=== PATIENT | male | born 1965 | race African-American/Black ===

== ENCOUNTER 2018-05-23 10:10 | Emergency (ER) | payer MEDICARE, OTHER ==
[~2018-05-23] VITALS: Ht 188 cm; Wt 113.6 kg
[~2018-05-23 10:10] MED LIST: AMLO-511 PO; CARI350 PO; GABA-531 PO; OLAN10TA6 PO; TOPI25 PO; VENL-67 PO; ZOLP10TA2 PO
[2018-05-23] MEDS ORDERED: LIDO700A15 TD (10:50)
[2018-05-23] MEDS ORDERED: TRAZ-219 PO (10:50)
[2018-05-23] MEDS ORDERED: MELO-107 PO (10:50)
[2018-05-23] MEDS ORDERED: HYDR25TA PO (10:50)
[2018-05-23] MEDS ORDERED: QUET200T PO (10:50)
[2018-05-23 13:22] VITALS: BP 169/90
== END 2018-05-23 13:47 | disposition home or self-care (01) ==
LOC: EMS 10:11
DX: I10 Essential (primary) hypertension (principal); F41.9 Anxiety disorder, unspecified; M54.5 Low back pain; G89.29 Other chronic pain; I25.10 Atherosclerotic heart disease of native coronary artery without angina pectoris; Z76.0 Encounter for issue of repeat prescription; Z88.5 Allergy status to narcotic agent; Z88.8 Allergy status to other drugs, medicaments and biological substances
CPT/HCPCS: 99283

== ENCOUNTER 2018-05-26 13:52 | Emergency (ER) | payer MEDICARE, OTHER ==
[~2018-05-26] VITALS: Ht 188 cm; Wt 113.6 kg
[~2018-05-26 13:52] MED LIST changes: -AMLO-511 PO; -CARI350 PO; +HYDR25TA PO; +LIDO700A15 TD; +MELO-107 PO; -OLAN10TA6 PO; +QUET200T PO; -TOPI25 PO; +TRAZ-219 PO; -ZOLP10TA2 PO
[2018-05-26] MEDS ORDERED: CLON-570 PO (14:00)
[2018-05-26] MEDS ORDERED: DEXAMETHASONE SOD PHOS 4 MG/ML 5 ML VIAL IM ONE (15:00)
[2018-05-26] MEDS ORDERED: CloNIDine HCL 0.1 MG TABLET PO ONE (15:15)
[2018-05-26] MEDS ORDERED: CYCLOBENZAPRINE HCL 10 MG TABLET PO ONE (15:15)
[2018-05-26 15:36] VITALS: BP 152/103
== END 2018-05-26 15:38 | disposition home or self-care (01) ==
LOC: EMS 13:54
DX: Z76.0 Encounter for issue of repeat prescription (principal); G89.29 Other chronic pain; M54.5 Low back pain; F41.9 Anxiety disorder, unspecified; I25.10 Atherosclerotic heart disease of native coronary artery without angina pectoris; F32.9 Major depressive disorder, single episode, unspecified; I10 Essential (primary) hypertension; F20.9 Schizophrenia, unspecified; Z88.6 Allergy status to analgesic agent; Z88.8 Allergy status to other drugs, medicaments and biological substances; Z79.899 Other long term (current) drug therapy
CPT/HCPCS: 96372; 99283; J1100

== ENCOUNTER 2018-06-11 16:00 | Inpatient (IN) | payer MEDICARE, MEDICAID ==
[~2018-06-11] VITALS: Ht 188 cm; Wt 103.2 kg
[~2018-06-11 16:00] MED LIST changes: +CLON-570 PO
[2018-06-11 16:39] LABS: GLUCOSE,POINT OF CARE 94 MG/DL (70-110)
[2018-06-11 17:04] LABS: BASOPHILS % (AUTO) 0.4 % (0.0-2.0); EOSINOPHILS % (AUTO) 4.4 % (1.0-6.0); HEMATOCRIT 38.2 % (41-53); HEMOGLOBIN 12.6 g/dL (13.5-17.5); LYMPHOCYTES # (AUTO) 1.2 K/uL (1.0-4.8); MEAN CORPUSCULAR HEMOGLOBIN 29.4 pg (26.0-34.0); MEAN CORPUSCULAR HGB CONC 32.9 G/dL (31.0-37.0); MEAN CORPUSCULAR VOLUME 89 fL (80-100); MONOCYTES # (AUTO) 0.7 K/uL (0.1-1.0); MONOCYTES % (AUTO) 10.5 % (2.0-9.0); NEUTROPHILS # (AUTO) 4.4 K/uL (1.8-7.7); NEUTROPHILS % (AUTO) 66.7 % (40.0-70.0); PLATELET COUNT (AUTO) 220 K/uL (150-450); RED BLOOD CELL COUNT(AUTO) 4.28 MIL/uL (4.50-5.90); RED CELL DISTRIBUTION WIDTH 13.8 % (11.5-14.5)
[2018-06-11 17:07] LABS: APPEARANCE,URINE CLEAR (CLEAR); BILIRUBIN,URINE PRELIM. POSITIVE (NEGATIVE); GLUCOSE, URINE (UA) NEGATIVE (NEGATIVE); KETONES,URINE NEGATIVE (NEGATIVE); LEUKOCYTE ESTERASE ,URINE NEGATIVE (NEGATIVE); NITRATE,URINE NEGATIVE (NEGATIVE); OCCULT BLOOD,URINE NEGATIVE (NEGATIVE); PROTEIN,URINE TRACE (NEGATIVE); UROBILINOGEN,URINE 0.2 mg/dL (<=1.0)
[2018-06-11 17:11] LABS: AMPHET/METH SCREEN,URINE POSITIVE (NEGATIVE); BARBITURATE SCREEN, URINE NEGATIVE (NEGATIVE); BENZODIAZEPINES SCREEN,URINE NEGATIVE (NEGATIVE); CANNABINOID SCREEN,URINE NEGATIVE (NEGATIVE); COCAINE SCREEN,URINE POSITIVE (NEGATIVE); METHADONE SCREEN, URINE NEGATIVE (NEGATIVE); OPIATE SCREEN,URINE NEGATIVE (NEGATIVE)
[2018-06-11 17:12] LABS: PHENCYCLIDINE SCREEN,URINE NEGATIVE (NEGATIVE)
[2018-06-11 17:15] LABS: ANION GAP 11 mmol/L (8-16); CALCIUM, TOTAL 8.8 mg/dL (8.8-10.5); CARBON DIOXIDE 25 mmol/L (22-29); CHLORIDE 105 mmol/L (98-107); CREATININE 1.07 mg/dL (0.60-1.30); GLOMERULAR FILTR. RATE CALC > 60 mL/min (>60); GLUCOSE,RANDOM 92 mg/dL (70-110); POTASSIUM 3.5 mmol/L (3.5-5.1); SODIUM SERUM 141 mmol/L (136-145); UREA NITROGEN, BLOOD 13 mg/dL (7-18)
[2018-06-11 17:29] LABS: ALANINE AMINOTRANSFERASE 31 U/L (12-78); ALBUMIN 3.3 g/dL (3.4-5.0); ALKALINE PHOSPHATASE 82 U/L (46-116); ASPARTATE AMINOTRANSFERASE 35 U/L (15-37); BILIRUBIN,TOTAL 0.8 mg/dL (0.1-1.0); TOTAL PROTEIN, SERUM 7.4 g/dL (6.4-8.2)
[2018-06-11] MEDS ORDERED: HALOPERIDOL 5 MG TABLET PO PRN (19:45)
[2018-06-11 21:11] VITALS: BP 136/82
[2018-06-11] MEDS ORDERED: LOPERAMIDE HCL 2 MG CAPSULE PO PRN ×2 (22:00→22:15)
[2018-06-11] MEDS ORDERED: IBUPROFEN 600 MG TABLET PO PRN ×2 (22:00→22:15)
[2018-06-11] MEDS ORDERED: PETROLATUM,WHITE 71 GM JELLY TP PRN ×2 (22:00→22:15)
[2018-06-11] MEDS ORDERED: CloNIDine HCL 0.1 MG TABLET PO PRN (22:00)
[2018-06-11] MEDS ORDERED: MAGNESIUM HYDROXIDE SUSPENSION 30 ML UDCUP PO PRN ×2 (22:00→22:15)
[2018-06-11] MEDS ORDERED: ACETAMINOPHEN 325 MG TABLET PO PRN ×2 (22:00→22:15)
[2018-06-11] MEDS ORDERED: BENZOCAINE/MENTHOL LOZENGE MM PRN ×2 (22:00→22:15)
[2018-06-11] MEDS ORDERED: BACITRACIN 28.4 GM OINTMENT TP PRN ×2 (22:00→22:15)
[2018-06-11] MEDS ORDERED: ONDANSETRON HCL 4 MG TABLET PO PRN ×2 (22:00→22:15)
[2018-06-11] MEDS ORDERED: ALBUTEROL SULFATE HFA 90 MCG/PUFF 8 GM INHALER IH PRN ×2 (22:00→22:15)
[2018-06-11] MEDS ORDERED: MAG HYDROX/AL HYDROX/SIMETH ES 30 ML SUSPENSION UDCUP PO PRN ×2 (22:00→22:15)
[2018-06-12 08:30] VITALS: BP 124/77
[2018-06-12] MEDS ORDERED: CloNIDine HCL 0.1 MG TABLET PO SCH (09:00)
[2018-06-12] MEDS ORDERED: GABAPENTIN 300 MG CAPSULE PO SCH (09:00)
[2018-06-12] MEDS ORDERED: OMEPRAZOLE 20 MG CAPSULE PO SCH (09:00)
[2018-06-12] MEDS: GABAPENTIN 300 MG CAPSULE PO SCH ×5 (09:00→21:00)
[2018-06-12] MEDS: HYDROCHLOROTHIAZIDE 25 MG TABLET PO SCH (09:00)
[2018-06-12] MEDS ORDERED: DOCUSATE SODIUM 100 MG CAPSULE PO SCH (09:00)
[2018-06-12] MEDS: OMEPRAZOLE 20 MG CAPSULE PO SCH (09:00)
[2018-06-12] MEDS: DOCUSATE SODIUM 100 MG CAPSULE PO SCH (09:00)
[2018-06-12] MEDS ORDERED: HYDROCHLOROTHIAZIDE 25 MG TABLET PO SCH (09:00)
[2018-06-12 17:45] VITALS: BP 138/92
[2018-06-12] MEDS ORDERED: DiphenhydrAMINE HCL 50 MG/ML VIAL IM ONE (21:30)
[2018-06-12] MEDS ORDERED: LORazepam 2 MG/ML VIAL IM ONE (21:30)
[2018-06-12] MEDS: ZOLPIDEM TARTRATE 10 MG TABLET PO PRN (22:34)
[2018-06-13 08:33] VITALS: BP 127/86
[2018-06-13] MEDS: OMEPRAZOLE 20 MG CAPSULE PO SCH (09:13)
[2018-06-13] MEDS: HYDROCHLOROTHIAZIDE 25 MG TABLET PO SCH (09:14)
[2018-06-13] MEDS: DOCUSATE SODIUM 100 MG CAPSULE PO SCH (09:14)
[2018-06-13] MEDS: DIVALPROEX SODIUM 500 MG DR TABLET PO SCH ×2 (09:14→16:08)
[2018-06-13] MEDS: GABAPENTIN 300 MG CAPSULE PO SCH ×4 (09:14→20:47)
[2018-06-13] MEDS: RisperiDONE 1 MG TABLET PO SCH ×2 (09:15→16:08)
[2018-06-13 16:52] VITALS: BP 132/67
[2018-06-13] MEDS: ZOLPIDEM TARTRATE 10 MG TABLET PO PRN (20:47)
[2018-06-14 07:00] LABS: % IRON SATURATION 17.8 % (30-44)
[2018-06-14 08:10] VITALS: BP 130/87
[2018-06-14] MEDS: DOCUSATE SODIUM 100 MG CAPSULE PO SCH (08:22)
[2018-06-14] MEDS: GABAPENTIN 300 MG CAPSULE PO SCH ×4 (08:22→20:13)
[2018-06-14] MEDS: RisperiDONE 1 MG TABLET PO SCH (08:22)
[2018-06-14] MEDS: HYDROCHLOROTHIAZIDE 25 MG TABLET PO SCH (08:22)
[2018-06-14] MEDS: OMEPRAZOLE 20 MG CAPSULE PO SCH (08:22)
[2018-06-14] MEDS: DIVALPROEX SODIUM 500 MG DR TABLET PO SCH ×2 (08:22→16:08)
[2018-06-14] MEDS: LORazepam 2 MG TABLET PO PRN (12:08)
[2018-06-14] MEDS ORDERED: TRAZ-220 PO (12:53)
[2018-06-14] MEDS: VENLAFAXINE HCL 75 MG ER CAPSULE PO SCH (13:43)
[2018-06-14] MEDS: TraZODone HCL 100 MG TABLET PO SCH (20:13)
[2018-06-14] MEDS: QUEtiapine FUMARATE 100 MG TABLET PO SCH (20:14)
[2018-06-15] MEDS: DIVALPROEX SODIUM 500 MG DR TABLET PO SCH ×2 (07:59→16:10)
[2018-06-15] MEDS: DOCUSATE SODIUM 100 MG CAPSULE PO SCH (07:59)
[2018-06-15] MEDS: GABAPENTIN 300 MG CAPSULE PO SCH ×4 (07:59→20:21)
[2018-06-15] MEDS: HYDROCHLOROTHIAZIDE 25 MG TABLET PO SCH (07:59)
[2018-06-15] MEDS: VENLAFAXINE HCL 75 MG ER CAPSULE PO SCH (08:00)
[2018-06-15] MEDS: OMEPRAZOLE 20 MG CAPSULE PO SCH (08:00)
[2018-06-15 08:11] VITALS: BP 122/85
[2018-06-15] MEDS: QUEtiapine FUMARATE 100 MG TABLET PO SCH (20:21)
[2018-06-15] MEDS: TraZODone HCL 100 MG TABLET PO SCH (20:21)
[2018-06-16 08:27] VITALS: BP 126/91
[2018-06-16] MEDS: DOCUSATE SODIUM 100 MG CAPSULE PO SCH (09:00)
[2018-06-16] MEDS: DIVALPROEX SODIUM 500 MG DR TABLET PO SCH ×2 (09:02→17:05)
[2018-06-16] MEDS: HYDROCHLOROTHIAZIDE 25 MG TABLET PO SCH (09:02)
[2018-06-16] MEDS: VENLAFAXINE HCL 75 MG ER CAPSULE PO SCH (09:02)
[2018-06-16] MEDS: GABAPENTIN 300 MG CAPSULE PO SCH ×4 (09:03→20:43)
[2018-06-16] MEDS: OMEPRAZOLE 20 MG CAPSULE PO SCH (09:03)
[2018-06-16] MEDS: LORazepam 2 MG TABLET PO PRN (11:51)
[2018-06-16] MEDS ORDERED: CYCL10 PO (14:06)
[2018-06-16] MEDS ORDERED: LIDO700A30 TD (14:06)
[2018-06-16] MEDS ORDERED: HYDR-4069 PO (14:06)
[2018-06-16] MEDS ORDERED: DICL2100G TP (14:06)
[2018-06-16] MEDS ORDERED: GABA-533 PO (14:11)
[2018-06-16] MEDS ORDERED: DICLOFENAC SODIUM 1% 100 GM GEL [2GM] TP PRN (20:15)
[2018-06-16] MEDS ORDERED: QUET100T PO (20:19)
[2018-06-16] MEDS: TraZODone HCL 100 MG TABLET PO SCH (20:42)
[2018-06-16] MEDS: QUEtiapine FUMARATE 100 MG TABLET PO SCH (20:42)
[2018-06-16] MEDS: ZOLPIDEM TARTRATE 10 MG TABLET PO PRN (20:44)
[2018-06-16] MEDS: -LIDODERM PATCH NOTE- MISC SCH (21:00)
[2018-06-17 08:12] VITALS: BP 134/68
[2018-06-17] MEDS: GABAPENTIN 300 MG CAPSULE PO SCH ×4 (08:27→20:41)
[2018-06-17] MEDS: DIVALPROEX SODIUM 500 MG DR TABLET PO SCH ×2 (08:27→17:41)
[2018-06-17] MEDS: DOCUSATE SODIUM 100 MG CAPSULE PO SCH (08:28)
[2018-06-17] MEDS: OMEPRAZOLE 20 MG CAPSULE PO SCH (08:28)
[2018-06-17] MEDS: VENLAFAXINE HCL 75 MG ER CAPSULE PO SCH (08:28)
[2018-06-17] MEDS: HYDROCHLOROTHIAZIDE 25 MG TABLET PO SCH (08:28)
[2018-06-17] MEDS: LIDOCAINE HCL 5% TRANSDERMAL PATCH TD SCH (09:01)
[2018-06-17] MEDS: LORazepam 2 MG TABLET PO PRN (15:25)
[2018-06-17 17:45] VITALS: BP 129/95
[2018-06-17] MEDS: -LIDODERM PATCH NOTE- MISC SCH (20:39)
[2018-06-17] MEDS: ZOLPIDEM TARTRATE 10 MG TABLET PO PRN (20:40)
[2018-06-17] MEDS: QUEtiapine FUMARATE 100 MG TABLET PO SCH (20:41)
[2018-06-17] MEDS: TraZODone HCL 100 MG TABLET PO SCH (20:41)
[2018-06-18 06:45] VITALS: BP 121/85
[2018-06-18] MEDS: LORazepam 2 MG TABLET PO PRN ×2 (06:49→16:46)
[2018-06-18] MEDS: VENLAFAXINE HCL 75 MG ER CAPSULE PO SCH (07:56)
[2018-06-18] MEDS: HYDROCHLOROTHIAZIDE 25 MG TABLET PO SCH (07:56)
[2018-06-18] MEDS: DIVALPROEX SODIUM 500 MG DR TABLET PO SCH ×3 (07:56→16:46)
[2018-06-18] MEDS: GABAPENTIN 300 MG CAPSULE PO SCH ×4 (07:56→20:11)
[2018-06-18] MEDS: DOCUSATE SODIUM 100 MG CAPSULE PO SCH (07:56)
[2018-06-18] MEDS: OMEPRAZOLE 20 MG CAPSULE PO SCH (07:56)
[2018-06-18] MEDS: LIDOCAINE HCL 5% TRANSDERMAL PATCH TD SCH (08:55)
[2018-06-18 09:10] VITALS: BP 129/97
[2018-06-18 16:30] VITALS: BP 136/84
[2018-06-18] MEDS: -LIDODERM PATCH NOTE- MISC SCH (20:10)
[2018-06-18] MEDS: QUEtiapine FUMARATE 100 MG TABLET PO SCH (20:11)
[2018-06-18] MEDS: TraZODone HCL 100 MG TABLET PO SCH (20:11)
[2018-06-18] MEDS: HYDROCODONE/ACETAMINOPHEN 10-325 MG TABLET PO PRN (20:11)
[2018-06-19] MEDS: HYDROCODONE/ACETAMINOPHEN 10-325 MG TABLET PO PRN (07:49)
[2018-06-19 08:21] VITALS: BP 136/88
[2018-06-19] MEDS: VENLAFAXINE HCL 75 MG ER CAPSULE PO SCH (09:03)
[2018-06-19] MEDS: DOCUSATE SODIUM 100 MG CAPSULE PO SCH (09:03)
[2018-06-19] MEDS: GABAPENTIN 300 MG CAPSULE PO SCH ×4 (09:04→20:24)
[2018-06-19] MEDS: TOPIRAMATE 100 MG TABLET PO SCH ×2 (09:04→16:28)
[2018-06-19] MEDS: OMEPRAZOLE 20 MG CAPSULE PO SCH (09:04)
[2018-06-19] MEDS: HYDROCHLOROTHIAZIDE 25 MG TABLET PO SCH (09:04)
[2018-06-19] MEDS: LIDOCAINE HCL 5% TRANSDERMAL PATCH TD SCH (09:04)
[2018-06-19 17:01] VITALS: BP 122/85
[2018-06-19] MEDS: TraMADol HCL 50 MG TABLET PO PRN (17:07)
[2018-06-19] MEDS: -LIDODERM PATCH NOTE- MISC SCH (20:21)
[2018-06-19] MEDS: QUEtiapine FUMARATE 100 MG TABLET PO SCH (20:23)
[2018-06-19] MEDS: TraZODone HCL 100 MG TABLET PO SCH (20:23)
[2018-06-20 08:43] VITALS: BP 119/66
[2018-06-20] MEDS: LIDOCAINE HCL 5% TRANSDERMAL PATCH TD SCH (09:00)
[2018-06-20] MEDS: TOPIRAMATE 100 MG TABLET PO SCH ×2 (09:43→16:38)
[2018-06-20] MEDS: VENLAFAXINE HCL 75 MG ER CAPSULE PO SCH (09:43)
[2018-06-20] MEDS: OMEPRAZOLE 20 MG CAPSULE PO SCH (09:44)
[2018-06-20] MEDS: HYDROCHLOROTHIAZIDE 25 MG TABLET PO SCH (09:44)
[2018-06-20] MEDS: GABAPENTIN 300 MG CAPSULE PO SCH ×4 (09:44→21:29)
[2018-06-20] MEDS: DOCUSATE SODIUM 100 MG CAPSULE PO SCH (09:44)
[2018-06-20 20:52] VITALS: BP 130/68
[2018-06-20 21:28] VITALS: BP 128/70
[2018-06-20] MEDS: TraZODone HCL 100 MG TABLET PO SCH (21:29)
[2018-06-20] MEDS: TraMADol HCL 50 MG TABLET PO PRN (21:29)
[2018-06-20] MEDS: QUEtiapine FUMARATE 100 MG TABLET PO SCH (21:29)
[2018-06-20] MEDS: -LIDODERM PATCH NOTE- MISC SCH (21:31)
[2018-06-21 08:32] VITALS: BP 116/71
[2018-06-21] MEDS: LIDOCAINE HCL 5% TRANSDERMAL PATCH TD SCH (09:00)
[2018-06-21] MEDS: LORazepam 2 MG TABLET PO PRN ×3 (09:51→21:15)
[2018-06-21] MEDS: GABAPENTIN 300 MG CAPSULE PO SCH ×4 (09:51→21:11)
[2018-06-21] MEDS: HYDROCHLOROTHIAZIDE 25 MG TABLET PO SCH (09:51)
[2018-06-21] MEDS: VENLAFAXINE HCL 75 MG ER CAPSULE PO SCH (09:52)
[2018-06-21] MEDS: TOPIRAMATE 100 MG TABLET PO SCH ×2 (09:52→16:45)
[2018-06-21] MEDS: DOCUSATE SODIUM 100 MG CAPSULE PO SCH (09:52)
[2018-06-21] MEDS: OMEPRAZOLE 20 MG CAPSULE PO SCH (09:52)
[2018-06-21 19:02] VITALS: BP 109/58
[2018-06-21] MEDS: QUEtiapine FUMARATE 100 MG TABLET PO SCH (21:11)
[2018-06-21] MEDS: TraZODone HCL 100 MG TABLET PO SCH (21:11)
[2018-06-21] MEDS: -LIDODERM PATCH NOTE- MISC SCH (21:14)
[2018-06-22 08:20] VITALS: BP 130/69
[2018-06-22] MEDS: VENLAFAXINE HCL 75 MG ER CAPSULE PO SCH (08:52)
[2018-06-22] MEDS: DOCUSATE SODIUM 100 MG CAPSULE PO SCH (08:52)
[2018-06-22] MEDS: HYDROCHLOROTHIAZIDE 25 MG TABLET PO SCH (08:52)
[2018-06-22] MEDS: GABAPENTIN 300 MG CAPSULE PO SCH ×2 (08:52→13:00)
[2018-06-22] MEDS: OMEPRAZOLE 20 MG CAPSULE PO SCH (08:52)
[2018-06-22] MEDS: TOPIRAMATE 100 MG TABLET PO SCH (08:53)
[2018-06-22] MEDS: LORazepam 2 MG TABLET PO PRN (08:55)
[2018-06-22] MEDS: LIDOCAINE HCL 5% TRANSDERMAL PATCH TD SCH (09:00)
[2018-06-22] MEDS ORDERED: TOPI100T37 PO (12:28)
[2018-06-22] MEDS ORDERED: DSS100 PO (12:29)
[2018-06-22] MEDS ORDERED: OMEP20 PO (12:30)
== END 2018-06-22 13:30 | disposition short-term general hospital (02) | DRG 885 ==
LOC: EMS 19:02 → 3EI 20:31 → 3EC 06-12 21:36 → 3EI 06-19 18:00
PROVIDERS: ADMIT Psychiatry & Neurology Psychiatry; ATTEND Psychiatry & Neurology Psychiatry
DX: F25.1 Schizoaffective disorder, depressive type (principal); R45.851 Suicidal ideations; F14.10 Cocaine abuse, uncomplicated; F15.10 Other stimulant abuse, uncomplicated; I25.10 Atherosclerotic heart disease of native coronary artery without angina pectoris; F17.210 Nicotine dependence, cigarettes, uncomplicated; F41.9 Anxiety disorder, unspecified; R56.9 Unspecified convulsions; I12.9 Hypertensive chronic kidney disease with stage 1 through stage 4 chronic kidney disease, or unspecified chronic kidney disease; N18.9 Chronic kidney disease, unspecified; G89.29 Other chronic pain; J44.9 Chronic obstructive pulmonary disease, unspecified; G47.33 Obstructive sleep apnea (adult) (pediatric); D64.9 Anemia, unspecified; Z71.51 Drug abuse counseling and surveillance of drug abuser; Z90.5 Acquired absence of kidney; Z59.0 Homelessness; Z56.0 Unemployment, unspecified; Z65.3 Problems related to other legal circumstances; Z85.528 Personal history of other malignant neoplasm of kidney; Z88.8 Allergy status to other drugs, medicaments and biological substances; Z79.899 Other long term (current) drug therapy
CPT/HCPCS: 72040; 72070; 72100; 83540; 83550; 94660; 99285; 99406; G0480; J1200; J2060

== ENCOUNTER 2018-06-22 16:50 | Inpatient (IN) | payer MEDICARE, MEDICAID ==
[~2018-06-22] VITALS: Ht 188 cm; Wt 107.0 kg
[~2018-06-22 16:50] MED LIST changes: +CYCL10 PO; +DICL2100G TP; +DSS100 PO; +HYDR-4069 PO; -LIDO700A15 TD; +LIDO700A30 TD; -MELO-107 PO; +OMEP20 PO; +QUET100T PO; -QUET200T PO; +TOPI100T37 PO; -TRAZ-219 PO; +TRAZ-220 PO
[2018-06-22 19:04] LABS: BASOPHILS % (AUTO) 0.3 % (0.0-2.0); EOSINOPHILS % (AUTO) 1.7 % (1.0-6.0); HEMATOCRIT 39.8 % (41-53); HEMOGLOBIN 12.9 g/dL (13.5-17.5); LYMPHOCYTES # (AUTO) 1.2 K/uL (1.0-4.8); LYMPHOCYTES % (AUTO) 14.7 % (22.0-44.0); MEAN CORPUSCULAR HEMOGLOBIN 29.1 pg (26.0-34.0); MEAN CORPUSCULAR HGB CONC 32.5 G/dL (31.0-37.0); MEAN CORPUSCULAR VOLUME 90 fL (80-100); MONOCYTES # (AUTO) 0.8 K/uL (0.1-1.0); MONOCYTES % (AUTO) 10.3 % (2.0-9.0); PLATELET COUNT (AUTO) 218 K/uL (150-450); RED BLOOD CELL COUNT(AUTO) 4.44 MIL/uL (4.50-5.90); RED CELL DISTRIBUTION WIDTH 13.2 % (11.5-14.5)
[2018-06-22 19:12] LABS: ANION GAP 12 mmol/L (8-16); CARBON DIOXIDE 26 mmol/L (22-29); CHLORIDE 101 mmol/L (98-107); CREATININE 1.41 mg/dL (0.60-1.30); GLOMERULAR FILTR. RATE CALC > 60 mL/min (>60); GLUCOSE,RANDOM 89 mg/dL (70-110); POTASSIUM 3.4 mmol/L (3.5-5.1); SODIUM SERUM 139 mmol/L (136-145); UREA NITROGEN, BLOOD 20 mg/dL (7-18)
[2018-06-22 19:18] LABS: ALANINE AMINOTRANSFERASE 38 U/L (12-78); ALBUMIN 3.2 g/dL (3.4-5.0); ALKALINE PHOSPHATASE 98 U/L (46-116); ASPARTATE AMINOTRANSFERASE 25 U/L (15-37); BILIRUBIN,TOTAL 0.3 mg/dL (0.1-1.0); TOTAL PROTEIN, SERUM 7.6 g/dL (6.4-8.2)
[2018-06-22 19:38] LABS: AMPHET/METH SCREEN,URINE NEGATIVE (NEGATIVE); BARBITURATE SCREEN, URINE NEGATIVE (NEGATIVE); BENZODIAZEPINES SCREEN,URINE NEGATIVE (NEGATIVE); CANNABINOID SCREEN,URINE NEGATIVE (NEGATIVE); COCAINE SCREEN,URINE NEGATIVE (NEGATIVE); METHADONE SCREEN, URINE NEGATIVE (NEGATIVE); OPIATE SCREEN,URINE NEGATIVE (NEGATIVE)
[2018-06-22 19:39] LABS: PHENCYCLIDINE SCREEN,URINE NEGATIVE (NEGATIVE)
[2018-06-23] MEDS ORDERED: QUEtiapine FUMARATE 100 MG TABLET PO PRN (01:00)
[2018-06-23] MEDS ORDERED: ZOLPIDEM TARTRATE 10 MG TABLET PO PRN (01:00)
[2018-06-23 02:44] VITALS: BP 116/78
[2018-06-23] MEDS: LORazepam 2 MG TABLET PO PRN ×2 (02:58→18:13)
[2018-06-23] MEDS ORDERED: PNEUMOCOCCAL VACCINE POLYVALENT 0.5 ML VIAL [PPSV23] IM ONE (06:00)
[2018-06-23] MEDS ORDERED: POTASSIUM CHLORIDE 20 MEQ ER TABLET PO ONE (07:15)
[2018-06-23 08:20] VITALS: BP 111/71
[2018-06-23] MEDS: HYDROCHLOROTHIAZIDE 25 MG TABLET PO SCH (08:20)
[2018-06-23] MEDS: TOPIRAMATE 100 MG TABLET PO SCH ×2 (08:20→16:36)
[2018-06-23] MEDS: GABAPENTIN 300 MG CAPSULE PO SCH ×4 (08:20→20:43)
[2018-06-23] MEDS: OMEPRAZOLE 20 MG CAPSULE PO SCH (08:20)
[2018-06-23] MEDS: DOCUSATE SODIUM 100 MG CAPSULE PO SCH (08:20)
[2018-06-23] MEDS ORDERED: HydrOXYzine PAMOATE 50 MG CAPSULE PO PRN (12:00)
[2018-06-23] MEDS ORDERED: MAG HYDROX/AL HYDROX/SIMETH ES 30 ML SUSPENSION UDCUP PO PRN (12:00)
[2018-06-23] MEDS ORDERED: GuaiFENesin/D-METHORPHAN [SUGAR-FREE] 200-20MG/10 ML SYRUP UDCUP PO PRN (12:00)
[2018-06-23] MEDS ORDERED: MAGNESIUM HYDROXIDE SUSPENSION 30 ML UDCUP PO PRN (12:00)
[2018-06-23] MEDS ORDERED: TUBERCULIN, PURIFIED PROTEIN DERIVATIVE 5 TU/0.1 ML SYG ID ONE (12:00)
[2018-06-23] MEDS ORDERED: PROMETHAZINE HCL 25 MG TABLET PO PRN (12:00)
[2018-06-23 16:36] VITALS: BP 108/68
[2018-06-23] MEDS: THIAMINE HCL 100 MG TABLET PO SCH (16:37)
[2018-06-23] MEDS: TraZODone HCL 100 MG TABLET PO SCH (20:43)
[2018-06-23] MEDS ORDERED: TraZODone HCL 100 MG TABLET PO SCH (21:00)
[2018-06-23] MEDS ORDERED: QUEtiapine FUMARATE 200 MG TABLET PO SCH (21:00)
[2018-06-24] VITALS: BP 116/81
[2018-06-24] MEDS ORDERED: QUEtiapine FUMARATE 100 MG TABLET PO SCH (09:00)
[2018-06-24 09:11] LABS: CHOL/HDL RATIO 3.7 (4.2-7.3)
[2018-06-24] MEDS: THIAMINE HCL 100 MG TABLET PO SCH ×2 (09:38→16:16)
[2018-06-24] MEDS: HYDROCHLOROTHIAZIDE 25 MG TABLET PO SCH (09:38)
[2018-06-24] MEDS: FOLIC ACID 1 MG TABLET PO SCH (09:38)
[2018-06-24] MEDS: MULTIVITAMINS WITH MINERALS, THERAPEUTIC TABLET PO SCH (09:38)
[2018-06-24] MEDS: VENLAFAXINE HCL 75 MG ER CAPSULE PO SCH (09:38)
[2018-06-24] MEDS: DOCUSATE SODIUM 100 MG CAPSULE PO SCH (09:38)
[2018-06-24] MEDS: OMEPRAZOLE 20 MG CAPSULE PO SCH (09:38)
[2018-06-24] MEDS: GABAPENTIN 300 MG CAPSULE PO SCH ×2 (09:38→12:55)
[2018-06-24] MEDS: TOPIRAMATE 100 MG TABLET PO SCH ×2 (09:38→16:16)
[2018-06-24] MEDS: NALTREXONE HCL 50 MG TABLET PO SCH (09:39)
[2018-06-24 10:03] VITALS: BP 121/72
[2018-06-24] MEDS: ACETAMINOPHEN 325 MG TABLET PO PRN (10:45)
[2018-06-24] MEDS: LORazepam 2 MG TABLET PO PRN (12:54)
[2018-06-24 16:00] VITALS: BP 110/70
[2018-06-24] MEDS: GABAPENTIN 400 MG CAPSULE PO SCH ×2 (16:17→20:11)
[2018-06-24] MEDS: TraZODone HCL 100 MG TABLET PO SCH (20:11)
[2018-06-24] MEDS ORDERED: QUEtiapine FUMARATE 300 MG TABLET PO SCH (21:00)
[2018-06-25 06:36] VITALS: BP 106/73
[2018-06-25] MEDS: GABAPENTIN 400 MG CAPSULE PO SCH ×2 (08:45→12:12)
[2018-06-25] MEDS: DOCUSATE SODIUM 100 MG CAPSULE PO SCH (08:45)
[2018-06-25] MEDS: OMEPRAZOLE 20 MG CAPSULE PO SCH (08:45)
[2018-06-25] MEDS: FOLIC ACID 1 MG TABLET PO SCH (08:45)
[2018-06-25] MEDS: MULTIVITAMINS WITH MINERALS, THERAPEUTIC TABLET PO SCH (08:45)
[2018-06-25] MEDS: NALTREXONE HCL 50 MG TABLET PO SCH (08:45)
[2018-06-25] MEDS: TOPIRAMATE 100 MG TABLET PO SCH ×2 (08:45→16:20)
[2018-06-25] MEDS: THIAMINE HCL 100 MG TABLET PO SCH ×2 (08:45→16:20)
[2018-06-25] MEDS: HYDROCHLOROTHIAZIDE 25 MG TABLET PO SCH (08:45)
[2018-06-25] MEDS: VENLAFAXINE HCL 75 MG ER CAPSULE PO SCH (08:45)
[2018-06-25 09:05] VITALS: BP 120/67
[2018-06-25] MEDS: CEPHALEXIN MONOHYDRATE 500 MG CAPSULE PO SCH ×3 (12:12→20:18)
[2018-06-25 16:15] VITALS: BP 110/83
[2018-06-25] MEDS: GABAPENTIN 100 MG CAPSULE PO SCH ×2 (16:20→20:18)
[2018-06-25] MEDS: QUEtiapine FUMARATE 200 MG TABLET PO SCH (20:18)
[2018-06-25] MEDS: TraZODone HCL 100 MG TABLET PO SCH (20:18)
[2018-06-26 08:20] VITALS: BP 117/75
[2018-06-26] MEDS: NALTREXONE HCL 50 MG TABLET PO SCH (09:00)
[2018-06-26 09:14] LABS: ALANINE AMINOTRANSFERASE 33 U/L (12-78); ALBUMIN 2.8 g/dL (3.4-5.0); ALKALINE PHOSPHATASE 107 U/L (46-116); ANION GAP 10 mmol/L (8-16); ASPARTATE AMINOTRANSFERASE 21 U/L (15-37); BILIRUBIN,TOTAL 0.3 mg/dL (0.1-1.0); CALCIUM, TOTAL 8.7 mg/dL (8.8-10.5); CARBON DIOXIDE 27 mmol/L (22-29); CHLORIDE 104 mmol/L (98-107); CREATINE KINASE, TOTAL 46 U/L (39-308); CREATININE 1.32 mg/dL (0.60-1.30); GLOMERULAR FILTR. RATE CALC > 60 mL/min (>60); GLUCOSE,RANDOM 84 mg/dL (70-110); POTASSIUM 3.4 mmol/L (3.5-5.1); SODIUM SERUM 141 mmol/L (136-145); UREA NITROGEN, BLOOD 26 mg/dL (7-18)
[2018-06-26] MEDS: MULTIVITAMINS WITH MINERALS, THERAPEUTIC TABLET PO SCH (09:21)
[2018-06-26] MEDS: THIAMINE HCL 100 MG TABLET PO SCH ×2 (09:21→16:19)
[2018-06-26] MEDS: GABAPENTIN 100 MG CAPSULE PO SCH ×4 (09:21→20:57)
[2018-06-26] MEDS: FOLIC ACID 1 MG TABLET PO SCH (09:21)
[2018-06-26] MEDS: VENLAFAXINE HCL 75 MG ER CAPSULE PO SCH (09:21)
[2018-06-26] MEDS: HYDROCHLOROTHIAZIDE 25 MG TABLET PO SCH (09:22)
[2018-06-26] MEDS: OMEPRAZOLE 20 MG CAPSULE PO SCH (09:22)
[2018-06-26] MEDS: DOCUSATE SODIUM 100 MG CAPSULE PO SCH (09:22)
[2018-06-26] MEDS: CEPHALEXIN MONOHYDRATE 500 MG CAPSULE PO SCH ×4 (09:22→20:57)
[2018-06-26] MEDS: TOPIRAMATE 100 MG TABLET PO SCH ×2 (09:24→16:19)
[2018-06-26] MEDS ORDERED: POTASSIUM CHLORIDE 20 MEQ ER TABLET PO ONE (14:15)
[2018-06-26 16:11] VITALS: BP 120/76
[2018-06-26] MEDS: ACETAMINOPHEN 325 MG TABLET PO PRN (17:08)
[2018-06-26] MEDS: LORazepam 2 MG TABLET PO PRN (17:53)
[2018-06-26] MEDS: QUEtiapine FUMARATE 200 MG TABLET PO SCH (20:58)
[2018-06-26] MEDS: TraZODone HCL 100 MG TABLET PO SCH (20:58)
[2018-06-27 04:46] VITALS: BP 108/70
[2018-06-27 08:14] VITALS: BP 110/67
[2018-06-27] MEDS: VENLAFAXINE HCL 75 MG ER CAPSULE PO SCH (08:47)
[2018-06-27] MEDS: HYDROCHLOROTHIAZIDE 25 MG TABLET PO SCH (08:48)
[2018-06-27] MEDS: DOCUSATE SODIUM 100 MG CAPSULE PO SCH (08:48)
[2018-06-27] MEDS: OMEPRAZOLE 20 MG CAPSULE PO SCH (08:48)
[2018-06-27] MEDS: FOLIC ACID 1 MG TABLET PO SCH (08:48)
[2018-06-27] MEDS: THIAMINE HCL 100 MG TABLET PO SCH ×2 (08:48→16:36)
[2018-06-27] MEDS: CEPHALEXIN MONOHYDRATE 500 MG CAPSULE PO SCH ×4 (08:49→20:28)
[2018-06-27] MEDS: NALTREXONE HCL 50 MG TABLET PO SCH (08:49)
[2018-06-27] MEDS: MULTIVITAMINS WITH MINERALS, THERAPEUTIC TABLET PO SCH (08:49)
[2018-06-27] MEDS: TOPIRAMATE 100 MG TABLET PO SCH ×2 (08:49→16:36)
[2018-06-27] MEDS: CYCLOBENZAPRINE HCL 10 MG TABLET PO SCH ×3 (08:49→16:37)
[2018-06-27] MEDS: GABAPENTIN 100 MG CAPSULE PO SCH ×2 (08:50→12:24)
[2018-06-27] MEDS: LORazepam 2 MG TABLET PO PRN (12:24)
[2018-06-27] MEDS: LIDOCAINE HCL 5% TRANSDERMAL PATCH TD SCH (12:39)
[2018-06-27 16:01] VITALS: BP 122/77
[2018-06-27] MEDS: GABAPENTIN 300 MG CAPSULE PO SCH ×2 (16:37→20:28)
[2018-06-27] MEDS: QUEtiapine FUMARATE 200 MG TABLET PO SCH (20:28)
[2018-06-27] MEDS: -LIDODERM PATCH NOTE- MISC SCH (21:17)
[2018-06-27] MEDS: TraZODone HCL 100 MG TABLET PO SCH (21:17)
[2018-06-28 06:57] VITALS: BP 103/63
[2018-06-28 08:12] VITALS: BP 118/59
[2018-06-28] MEDS: THIAMINE HCL 100 MG TABLET PO SCH ×2 (09:05→16:02)
[2018-06-28] MEDS: FOLIC ACID 1 MG TABLET PO SCH (09:05)
[2018-06-28] MEDS: DOCUSATE SODIUM 100 MG CAPSULE PO SCH (09:05)
[2018-06-28] MEDS: TOPIRAMATE 100 MG TABLET PO SCH ×2 (09:06→16:03)
[2018-06-28] MEDS: VENLAFAXINE HCL 75 MG ER CAPSULE PO SCH (09:06)
[2018-06-28] MEDS: MULTIVITAMINS WITH MINERALS, THERAPEUTIC TABLET PO SCH (09:06)
[2018-06-28] MEDS: GABAPENTIN 300 MG CAPSULE PO SCH ×4 (09:06→20:51)
[2018-06-28] MEDS: OMEPRAZOLE 20 MG CAPSULE PO SCH (09:07)
[2018-06-28] MEDS: CYCLOBENZAPRINE HCL 10 MG TABLET PO SCH ×3 (09:07→16:02)
[2018-06-28] MEDS: NALTREXONE HCL 50 MG TABLET PO SCH (09:07)
[2018-06-28] MEDS: HYDROCHLOROTHIAZIDE 25 MG TABLET PO SCH (09:07)
[2018-06-28] MEDS: CEPHALEXIN MONOHYDRATE 500 MG CAPSULE PO SCH ×4 (09:07→20:51)
[2018-06-28] MEDS: LIDOCAINE HCL 5% TRANSDERMAL PATCH TD SCH (09:10)
[2018-06-28 16:46] VITALS: BP 112/72
[2018-06-28] MEDS: LORazepam 2 MG TABLET PO PRN (18:08)
[2018-06-28] MEDS: TraZODone HCL 100 MG TABLET PO SCH (20:50)
[2018-06-28] MEDS: QUEtiapine FUMARATE 200 MG TABLET PO SCH (20:50)
[2018-06-28] MEDS: -LIDODERM PATCH NOTE- MISC SCH (20:54)
[2018-06-29 00:04] VITALS: BP 121/69
[2018-06-29 05:35] VITALS: BP 116/77
[2018-06-29] MEDS: LORazepam 2 MG TABLET PO PRN (05:48)
[2018-06-29 08:27] VITALS: BP 116/73
[2018-06-29] MEDS: GABAPENTIN 300 MG CAPSULE PO SCH ×4 (09:57→20:33)
[2018-06-29] MEDS: FOLIC ACID 1 MG TABLET PO SCH (09:57)
[2018-06-29] MEDS: THIAMINE HCL 100 MG TABLET PO SCH ×2 (09:57→16:20)
[2018-06-29] MEDS: CYCLOBENZAPRINE HCL 10 MG TABLET PO SCH ×3 (09:57→16:20)
[2018-06-29] MEDS: OMEPRAZOLE 20 MG CAPSULE PO SCH (09:57)
[2018-06-29] MEDS: HYDROCHLOROTHIAZIDE 25 MG TABLET PO SCH (09:57)
[2018-06-29] MEDS: VENLAFAXINE HCL 75 MG ER CAPSULE PO SCH (09:57)
[2018-06-29] MEDS: NALTREXONE HCL 50 MG TABLET PO SCH (09:58)
[2018-06-29] MEDS: CEPHALEXIN MONOHYDRATE 500 MG CAPSULE PO SCH ×4 (09:58→20:33)
[2018-06-29] MEDS: MULTIVITAMINS WITH MINERALS, THERAPEUTIC TABLET PO SCH (09:58)
[2018-06-29] MEDS: DOCUSATE SODIUM 100 MG CAPSULE PO SCH (09:58)
[2018-06-29] MEDS: TOPIRAMATE 100 MG TABLET PO SCH ×2 (09:58→16:20)
[2018-06-29] MEDS: LIDOCAINE HCL 5% TRANSDERMAL PATCH TD SCH (09:59)
[2018-06-29 16:06] VITALS: BP 112/76
[2018-06-29] MEDS: TraZODone HCL 100 MG TABLET PO SCH (20:33)
[2018-06-29] MEDS: QUEtiapine FUMARATE 200 MG TABLET PO SCH (20:33)
[2018-06-29] MEDS: -LIDODERM PATCH NOTE- MISC SCH (21:00)
[2018-06-30 06:37] VITALS: BP 122/90
[2018-06-30 08:46] VITALS: BP 140/89
[2018-06-30] MEDS: CYCLOBENZAPRINE HCL 10 MG TABLET PO SCH ×3 (08:53→17:29)
[2018-06-30] MEDS: GABAPENTIN 300 MG CAPSULE PO SCH ×4 (08:53→20:39)
[2018-06-30] MEDS: FOLIC ACID 1 MG TABLET PO SCH (08:54)
[2018-06-30] MEDS: OMEPRAZOLE 20 MG CAPSULE PO SCH (08:55)
[2018-06-30] MEDS: CEPHALEXIN MONOHYDRATE 500 MG CAPSULE PO SCH ×4 (08:55→20:38)
[2018-06-30] MEDS: VENLAFAXINE HCL 75 MG ER CAPSULE PO SCH (08:55)
[2018-06-30] MEDS: NALTREXONE HCL 50 MG TABLET PO SCH (08:55)
[2018-06-30] MEDS: DOCUSATE SODIUM 100 MG CAPSULE PO SCH (08:55)
[2018-06-30] MEDS: HYDROCHLOROTHIAZIDE 25 MG TABLET PO SCH (08:55)
[2018-06-30] MEDS: TOPIRAMATE 100 MG TABLET PO SCH ×2 (08:56→17:29)
[2018-06-30] MEDS: MULTIVITAMINS WITH MINERALS, THERAPEUTIC TABLET PO SCH (08:56)
[2018-06-30] MEDS: LIDOCAINE HCL 5% TRANSDERMAL PATCH TD SCH (08:56)
[2018-06-30] MEDS: THIAMINE HCL 100 MG TABLET PO SCH ×2 (08:56→17:28)
[2018-06-30 09:26] LABS: ALANINE AMINOTRANSFERASE 31 U/L (12-78); ALBUMIN 3.2 g/dL (3.4-5.0); ALKALINE PHOSPHATASE 95 U/L (46-116); ANION GAP 12 mmol/L (8-16); ASPARTATE AMINOTRANSFERASE 17 U/L (15-37); BILIRUBIN,TOTAL 0.3 mg/dL (0.1-1.0); CARBON DIOXIDE 24 mmol/L (22-29); CHLORIDE 104 mmol/L (98-107); CREATININE 1.36 mg/dL (0.60-1.30); GLOMERULAR FILTR. RATE CALC > 60 mL/min (>60); GLUCOSE,RANDOM 77 mg/dL (70-110); POTASSIUM 3.5 mmol/L (3.5-5.1); SODIUM SERUM 140 mmol/L (136-145); TOTAL PROTEIN, SERUM 7.9 g/dL (6.4-8.2); UREA NITROGEN, BLOOD 20 mg/dL (7-18)
[2018-06-30] MEDS: LORazepam 2 MG TABLET PO PRN (09:52)
[2018-06-30 16:34] VITALS: BP 118/76
[2018-06-30] MEDS: TraZODone HCL 100 MG TABLET PO SCH (20:38)
[2018-06-30] MEDS: QUEtiapine FUMARATE 200 MG TABLET PO SCH (20:39)
[2018-06-30] MEDS: -LIDODERM PATCH NOTE- MISC SCH (20:42)
[2018-07-01 00:28] VITALS: BP 112/65
[2018-07-01] MEDS ORDERED: THIA100T67 PO (03:10)
[2018-07-01] MEDS ORDERED: CEPH500 PO (03:10)
[2018-07-01] MEDS ORDERED: MULT-1239 PO (03:10)
[2018-07-01] MEDS ORDERED: LIDO700A15 TD (03:10)
[2018-07-01] MEDS ORDERED: CYCL10 PO (03:10)
[2018-07-01] MEDS ORDERED: FOLI1 PO (03:10)
[2018-07-01] MEDS ORDERED: QUET200T PO (03:10)
[2018-07-01] MEDS ORDERED: NALT50TA6 PO (03:10)
[2018-07-01] MEDS ORDERED: GABA-531 PO (03:10)
[2018-07-01 08:12] VITALS: BP 138/78
[2018-07-01] MEDS: VENLAFAXINE HCL 75 MG ER CAPSULE PO SCH (08:27)
[2018-07-01] MEDS: CYCLOBENZAPRINE HCL 10 MG TABLET PO SCH ×2 (08:27→12:32)
[2018-07-01] MEDS: DOCUSATE SODIUM 100 MG CAPSULE PO SCH (08:27)
[2018-07-01] MEDS: FOLIC ACID 1 MG TABLET PO SCH (08:28)
[2018-07-01] MEDS: CEPHALEXIN MONOHYDRATE 500 MG CAPSULE PO SCH ×2 (08:28→12:32)
[2018-07-01] MEDS: GABAPENTIN 300 MG CAPSULE PO SCH ×2 (08:28→12:32)
[2018-07-01] MEDS: HYDROCHLOROTHIAZIDE 25 MG TABLET PO SCH (08:28)
[2018-07-01] MEDS: MULTIVITAMINS WITH MINERALS, THERAPEUTIC TABLET PO SCH (08:29)
[2018-07-01] MEDS: TOPIRAMATE 100 MG TABLET PO SCH (08:29)
[2018-07-01] MEDS: THIAMINE HCL 100 MG TABLET PO SCH (08:29)
[2018-07-01] MEDS: LIDOCAINE HCL 5% TRANSDERMAL PATCH TD SCH (08:30)
[2018-07-01] MEDS: OMEPRAZOLE 20 MG CAPSULE PO SCH (08:34)
[2018-07-01] MEDS: NALTREXONE HCL 50 MG TABLET PO SCH (08:35)
== END 2018-07-01 13:20 | disposition home or self-care (01) | DRG 885 ==
LOC: EMS 16:51 → B2S 06-23 00:30
PROVIDERS: ADMIT Psychiatry & Neurology Psychiatry; ATTEND Psychiatry & Neurology Psychiatry
DX: F25.0 Schizoaffective disorder, bipolar type (principal); R45.851 Suicidal ideations; F11.20 Opioid dependence, uncomplicated; K21.9 Gastro-esophageal reflux disease without esophagitis; I25.10 Atherosclerotic heart disease of native coronary artery without angina pectoris; F41.9 Anxiety disorder, unspecified; F17.210 Nicotine dependence, cigarettes, uncomplicated; G47.33 Obstructive sleep apnea (adult) (pediatric); F15.90 Other stimulant use, unspecified, uncomplicated; R56.9 Unspecified convulsions; I12.9 Hypertensive chronic kidney disease with stage 1 through stage 4 chronic kidney disease, or unspecified chronic kidney disease; N18.9 Chronic kidney disease, unspecified; K59.00 Constipation, unspecified; E87.6 Hypokalemia; D64.9 Anemia, unspecified; E78.5 Hyperlipidemia, unspecified; G47.00 Insomnia, unspecified; G89.4 Chronic pain syndrome; J45.909 Unspecified asthma, uncomplicated; M54.5 Low back pain; R26.9 Unspecified abnormalities of gait and mobility; Z79.899 Other long term (current) drug therapy; Z91.19 Patient's noncompliance with other medical treatment and regimen; Z88.8 Allergy status to other drugs, medicaments and biological substances; Z85.528 Personal history of other malignant neoplasm of kidney; Z85.47 Personal history of malignant neoplasm of testis; Z65.3 Problems related to other legal circumstances; Z92.21 Personal history of antineoplastic chemotherapy; Z90.5 Acquired absence of kidney; Z71.51 Drug abuse counseling and surveillance of drug abuser; Z59.0 Homelessness
CPT/HCPCS: 83735; 84132; 87081; 99285; G0480

== ENCOUNTER 2018-10-06 05:38 | Emergency (ER) | payer MEDICARE, MEDICAID ==
[~2018-10-06] VITALS: Ht 188 cm; Wt 111.4 kg
[~2018-10-06 05:38] MED LIST changes: +CEPH500 PO; -CLON-570 PO; -DICL2100G TP; -DSS100 PO; -HYDR-4069 PO; +LIDO700A15 TD; -LIDO700A30 TD; +NALT50TA6 PO; -QUET100T PO; +QUET200T PO
[2018-10-06] MEDS ORDERED: CARV6 PO (05:57)
[2018-10-06] MEDS ORDERED: CLON2 PO (05:57)
[2018-10-06] MEDS ORDERED: PANT40TA25 PO (05:57)
[2018-10-06] MEDS ORDERED: BENA20 PO (05:57)
[2018-10-06] MEDS ORDERED: METHOCARBAMOL 750 MG TABLET PO ONE (08:00)
[2018-10-06] MEDS ORDERED: MethylPREDNISolone SOD SUCC 125 MG/2 ML VIAL IM ONE (08:00)
[2018-10-06] MEDS ORDERED: CloNIDine HCL 0.1 MG TABLET PO ONE (08:00)
[2018-10-06] MEDS ORDERED: METHOCARBAMOL 500 MG TABLET PO ONE (08:15)
[2018-10-06 08:47] VITALS: BP 132/98
== END 2018-10-06 08:49 | disposition home or self-care (01) ==
LOC: EMS 05:42
DX: G89.29 Other chronic pain (principal); M54.5 Low back pain; M25.561 Pain in right knee; I10 Essential (primary) hypertension; F41.9 Anxiety disorder, unspecified; F32.9 Major depressive disorder, single episode, unspecified; I25.10 Atherosclerotic heart disease of native coronary artery without angina pectoris; F20.9 Schizophrenia, unspecified; F12.90 Cannabis use, unspecified, uncomplicated; Z87.891 Personal history of nicotine dependence; Z88.8 Allergy status to other drugs, medicaments and biological substances; Z79.899 Other long term (current) drug therapy
CPT/HCPCS: 29505; 96372; 99283; J2930; 29530

== ENCOUNTER 2018-10-17 12:30 | Emergency (ER) | payer MEDICARE, MEDICAID ==
[~2018-10-17] VITALS: Ht 188 cm; Wt 112.7 kg
[~2018-10-17 12:30] MED LIST changes: +BENA20 PO; +CARV6 PO; -CEPH500 PO; +CLON2 PO; -HYDR25TA PO; -LIDO700A15 TD; -NALT50TA6 PO; -OMEP20 PO; +PANT40TA25 PO
[2018-10-17] MEDS ORDERED: HYDROCODONE/ACETAMINOPHEN 10-325 MG TABLET PO ONE (15:45)
[2018-10-17] MEDS ORDERED: MethylPREDNISolone SOD SUCC 125 MG/2 ML VIAL IM ONE (16:30)
[2018-10-17 17:45] VITALS: BP 118/72
== END 2018-10-17 17:48 | disposition home or self-care (01) ==
LOC: EMS 12:31
DX: M54.5 Low back pain (principal); F12.10 Cannabis abuse, uncomplicated; Z87.891 Personal history of nicotine dependence; F41.9 Anxiety disorder, unspecified; F32.9 Major depressive disorder, single episode, unspecified; I10 Essential (primary) hypertension; F20.9 Schizophrenia, unspecified; I25.10 Atherosclerotic heart disease of native coronary artery without angina pectoris; Z88.6 Allergy status to analgesic agent; Z79.899 Other long term (current) drug therapy; W01.0XXA Fall on same level from slipping, tripping and stumbling without subsequent striking against object, initial encounter; Y93.89 Activity, other specified; Y92.098 Other place in other non-institutional residence as the place of occurrence of the external cause; Y99.8 Other external cause status
CPT/HCPCS: 70450; 72125; 72131; 96372; 99284; J2930

== ENCOUNTER 2018-10-19 02:51 | Emergency (ER) | payer MEDICARE, MEDICAID | END 2018-10-19 03:00 | disposition left against medical advice (07) | LOC: EMS 02:52 | DX: M25.569 Pain in unspecified knee (principal); Z53.21 Procedure and treatment not carried out due to patient leaving prior to being seen by health care provider ==